=== PATIENT | male | born 1960 | race Caucasian/White ===

== ENCOUNTER 2018-05-27 09:01 | Day surgery (SDC) | payer OTHER ==
[~2018-05-27] VITALS: Ht 177.8 cm; Wt 80.0 kg
[2018-05-27 10:13] VITALS: Ht 177.8 cm; Wt 80.0 kg
[2018-05-27] MEDS ORDERED: [UNRECOGNIZED DRUG - OTHER] (10:21)
[2018-05-27] MEDS ORDERED: [UNRECOGNIZED DRUG - OTHER] (10:21)
[2018-05-27] MEDS ORDERED: LOSARTAN DAILY (10:21)
[2018-05-27] MEDS ORDERED: TRAZODONE (10:21)
[2018-05-27 10:46] VITALS: BP 148/86; PULSE 56; RESP 20
--- NOTE | 2018-05-27 10:49 | PREAC ---
Date/Time of Note Date/Time of Note DATE: 05/27/18 TIME: 10:46 Anesthesia Eval and Record Evaluation Time Pre-Procedure Interview DATE: 05/27/18 TIME: 10:46 Age 57 Sex male NPO: 8 hrs Preoperative diagnosis Colon Screening Planned procedure Colonoscopy Past Medical History Past Medical History: Includes Cardio: HTN, Dyslipidemia, CAD Psych: Bipolar Surgery & Anesthesia Issues No known issue Meds Anticoagulation: No Beta Rylan within 24 hr: No Reason Beta Rylan not given: Pt. not on B-Rylan Reported Medications [Wellbutrin Daily] No Conflict Check 05/27/18 [Trazodone Daily] No Conflict Check 05/27/18 [Respiradone Daily] No Conflict Check 05/27/18 [Losartan Daily] No Conflict Check 05/27/18 Meds reviewed: Yes Allergies Coded Allergies: No Known Drug Allergy (Verified Allergy, Unknown, 05/27/18) Allergies Reviewed: Yes Labs/Studies Labs Reviewed: Reviewed by anesthesiologist test: N/A Studies: ECG Pre-procedure Exam Last vitals BP:128/68, P:78, Spo2:100%, T:98,9 Airway: Adequate mouth opening, Adequate thyromental dist Mallampati: Mallampati II Teeth: Normal Lung: Normal Heart: Normal ASA Physical Status ASA physical status: 3 Emergency: None Planned Anesthetic General/MAC: MAC Planned Pain Management Parenteral pain med Pre-operative Attestations Prior to commencing anesthesia and surgery, the patient was re-evaluated, there was verification of: *The patient's identity *The results of appropriate recent lab work and preoperative vital signs *The above evaluation not changing prior to induction *Anesthetic plan, risk benefits, alternative and complications discussed with patient/family; questions answered; patient/family understands, accepts and wishes to proceed. LILLIAN ALEJO MD May 27, 2018 10:49
[2018-05-27] MEDS ORDERED: LIDOCAINE 2% (SDV) 5 ML INJ ONE (10:50)
[2018-05-27] MEDS ORDERED: PROPOFOL 60 ML ONE (10:50)
[2018-05-27 11:10] VITALS: BP 113/68; PULSE 62; RESP 16
--- NOTE | 2018-05-27 11:13 | PAC ---
Date/Time of Note Date/Time of Note DATE: 05/27/18 TIME: 11:12 Post-Anesthesia Notes Post-Anesthesia Note Last documented vital signs Vital Signs Date Temp Pulse Resp B/P (MAP) Pulse Ox O2 O2 Flow FiO2 Time Delivery Rate 05/27/18 97.4 56 20 148/86 100 Room Air 10:46 (106) Activity: WNL Respiratory function: WNL Cardiovascular function: WNL Mental status: Baseline Pain reasonably controlled: Yes Hydration appropriate: Yes Nausea/Vomiting absent: Yes Comments BP:128/68, P:79, Spo2:100%, T:98,9 LILLIAN ALEJO MD May 27, 2018 11:13
[2018-05-27 11:20] VITALS: BP 106/69; PULSE 62; RESP 18
[2018-05-27 11:40] VITALS: BP 132/88; PULSE 58; RESP 20
== END 2018-05-27 13:23 | disposition home or self-care (01) ==
LOC: GIL 09:01
PROVIDERS: ATTEND Internal Medicine Gastroenterology
DX: Z12.11 Encounter for screening for malignant neoplasm of colon (principal); D12.0 Benign neoplasm of cecum; K64.8 Other hemorrhoids; K57.30 Diverticulosis of large intestine without perforation or abscess without bleeding
CPT/HCPCS: 45385; 88305; Z7610